=== PATIENT | female | born 1955 | race Caucasian/White ===

== ENCOUNTER 2017-09-24 09:34 | Emergency (ER) | payer MEDICARE, SELFPAY ==
[2017-09-24 09:36] VITALS: BP 169/80; PULSE 82; RESP 18; TEMP 36.6; O2SAT 97; BMI 39.0
--- NOTE | 2017-09-24 09:45 | ED.VISSUMM ---
- ER Visit Summary Date of Service: 09/24/17 Chief Complaint: Low blood sugar, neck pain History of Present Illness: The patient is a 62 F who states for the past couple of days her blood sugar has been running low. She states that she may have had an episode of low blood sugar and when she came to she checked her blood sugar and it was 42. She then had some neck pain after this. She thinks she might have fallen. She states that she sometimes has not been eating well over the past couple of days but takes the same dose of her insulin. She has no other complaints. She was able to drive herself here today. Physical Examination: Vital signs reviewed. HEENT exam unremarkable. Cervical spine is tender to palpation diffusely. Heart is regular rate and rhythm without murmurs. Lungs are clear to auscultation. Abdomen is soft and nontender. Extremities reveal no edema. Skin exam normal. Neurologic exam normal. Test Results: Laboratory studies normal except for glucose of 159. Cervical spine x-rays reveal no acute findings. Emergency Department Course and Treatment: Patient will be given Tylenol for her neck pain. This is likely muscular in nature. I do not suspect any intracranial injury as she has a normal neurologic exam. Her low blood sugars likely due to her taking her normal insulin dose and not eating. I explained her that she needs to take her insulin dose she needs to eat. Not hungry and is not going to be she needs to decrease her dose of insulin. She will discuss this with her primary care physician Treatment Plan: [] Disposition: Discharge Impression: Hypoglycemia, cervical strain This note was generated with [employer] dictation software. It may contain incorrect words, spelling, and punctuation that were not noted in review of the chart prior to signing ED Disposition - Plan for ED Patient: Chief Complaint: Hypoglycemia Referrals: Eugene Chapa Chi, MD [COURTESY STAFF PHYSICIAN] -
[2017-09-24 10:04] LABS: Absolute Lymphocyte Count 1.16 X10^3/ul (0.83-4.51); Absolute Neutrophil Count 2.3 X10^3/uL (2.0-7.7); Basophil# 0.03 X10^3/uL; Basophil% 0.8 % (0-1); Eosinophil# 0.08 X10^3/uL; Hematocrit 38.6 % (37-47); Hemoglobin 12.5 g/dl (12.0-15.0); Lymphocyte # 1.16 X10^3/ul (4.0); Mean Corp Hgb Conc 32.4 g/gl (32-36); Mean Corpuscular Hgb 29.2 pg (27.0-32.0); Mean Corpuscular Volume 90.2 fL (81-99); Mean Platelet Vol. 8.7 fl (6.2-12.0); Monocyte# 0.45 X10^3/uL; Monocyte% 11.3 % (0-10); Neutrophil # 2.28 X10^3/uL (2.7-7.7); Neutrophil % 56.9 % (47-70); POSITIVE COUNT NO; POSITIVE DIFFERENTIAL NO; POSITIVE MORPHOLOGY NO; Platelet Count 161 K/mm3 (150-450); RBC Distribution Width CV 12.9 % (11.6-14.6); RBC Distribution Width SD 42.4 fl (35.1-43.9); Red Blood Count 4.28 M/mm3 (4.2-5.4)
--- NOTE | 2017-09-24 10:05 | RAD_ITS ---
STUDY: X-RAY - CERVICAL SPINE REASON FOR EXAM: Female, 62 years old. Neck pain. TECHNIQUE: AP and lateral view(s) of the cervical spine were obtained. COMPARISON: None FINDINGS: Normal anterior atlantoaxial articulation. Normal odontoid process. Normal cervical lordosis. Mild degree of disc space narrowing with anterior spondylosis at the C6-C7 level. Normal visualized intervertebral neuroforamina. The soft tissue structures are unremarkable. RAD/Cerv Spine 2 or 3 Views IMPRESSION: Mild degree of disc space narrowing with anterior spondylosis at the C6-C7 level. Electronically Signed: Joey Coronado MD at 10:25 EST Tel [phone], Service support ,
[2017-09-24 10:16] LABS: Anion Gap 6 (5-15); BUN 12 mg/dL (7-18); BUN/Creat Ratio 12.4 RATIO (10-20); Calcium,Total 9.1 mg/dL (8.5-10.1); Chloride 103 mmol/L (98-107); Creatinine, Serum 0.97 mg/dL (0.55-1.02); EST Glomerular Filtration Rate 62 mL/min (>60); Est Glom Filt Rate - Afr Amer 75 mL/min (>60); Glucose 159 mg/dL (74-106); Potassium 4.3 mmol/L (3.5-5.1); Sodium Level 140 mmol/L (136-145)
--- NOTE | 2017-09-24 10:31 | ED.DEP ---
ED Disposition - Plan for ED Patient: Disposition: Home or Assisted Living Chief Complaint: Hypoglycemia Instructions: ED Diabetes Hypoglycemia Insulin React Referrals: Eugene Chapa Chi, MD [COURTESY STAFF PHYSICIAN] -
[2017-09-24 10:52] VITALS: PULSE 84; RESP 16; O2SAT 98
== END 2017-09-24 10:53 | disposition home or self-care (01) ==
PROVIDERS: Emergency Provider Emergency Medicine; Family Provider Internal Medicine; PCP Internal Medicine
DX: E11.649 Type 2 diabetes mellitus with hypoglycemia without coma (principal); S16.1XXA Strain of muscle, fascia and tendon at neck level, initial encounter; X58.XXXA Exposure to other specified factors, initial encounter; Y93.9 Activity, unspecified; Y92.9 Unspecified place or not applicable; I10 Essential (primary) hypertension; F32.9 Major depressive disorder, single episode, unspecified; Z86.39 Personal history of other endocrine, nutritional and metabolic disease; Z79.82 Long term (current) use of aspirin; Z79.4 Long term (current) use of insulin; Z79.899 Other long term (current) drug therapy
CPT/HCPCS: 72040; 80048; 85025; 99283

== ENCOUNTER 2017-11-19 18:47 | Emergency (ER) | payer MEDICARE, SELFPAY ==
[2017-11-19 18:47] VITALS: BP 166/76; PULSE 88; RESP 16; TEMP 36.4; O2SAT 99; BMI 38.2
--- NOTE | 2017-11-19 20:18 | RAD_ITS ---
STUDY: X-RAY - ABDOMEN/PELVIS REASON FOR EXAM: Female, 62 years old. constipation x 1 week TECHNIQUE: Single AP view of the abdomen / pelvis. COMPARISON: None. FINDINGS: There are multiple metallic clips in the right upper quadrant. This is consistent for a cholecystectomy. There is a moderate amount of colonic fecal material. There is no demonstrated free abdominal air. The visualized liver, spleen and kidneys are grossly normal in size and morphology. Normal soft tissue structures. There are diffuse degenerative changes of the visualized lumbar spine. RAD/Abdomen Single View (Portable) IMPRESSION: CONSTIPATION Electronically Signed: Ramesh Duarte MD at 20:31 EDT , Service support ,
--- NOTE | 2017-11-19 21:30 | ED.VISSUMM ---
- ER Visit Summary Date of Service: 11/19/17 Chief Complaint: Constipation History of Present Illness: The patient is a 62 F with constipation. No bowel movement for over a week. She is passing gas. She tried multiple medications at home with no relief. No history of bowel surgery or obstruction. No new medications. No vomiting. Physical Examination: Vital signs unremarkable. Afebrile. Abdomen soft and nontender. Rectal exam negative for stool or impaction. Test Results: KUB shows constipation. No obstruction. Emergency Department Course and Treatment: She treated with soapsuds enema and had good bowel movement. Will discharge. Use MiraLAX at home. Follow-up with primary care. Treatment Plan: As above Disposition: Discharged Impression:. Constipation This note was generated with [employer] dictation software. It may contain incorrect words, spelling, and punctuation that were not noted in review of the chart prior to signing ED Disposition - Plan for ED Patient: Chief Complaint: Constipation Referrals: Teresa Flores MD [Primary Care Provider] -
--- NOTE | 2017-11-19 21:31 | ED.DEP ---
ED Disposition - Plan for ED Patient: Chief Complaint: Constipation Instructions: ED Constipation Referrals: Teresa Flores MD [Primary Care Provider] -
[2017-11-19 21:54] VITALS: BP 136/70; PULSE 79; RESP 18; O2SAT 97
--- NOTE | 2017-11-19 21:55 | ED.RN ---
PT WITH SUCCESSFUL ENEMA RESULTS. PT GIVEN WRITTEN AND VERBAL DISCHARGE INSTRUCTIONS. PT VERBALIZES UNDERSTANDING. DENIES ANY FURTHER QUESTIONS. PT DRESSES SELF AND AMBULATES OUT OF DEPT WITHOUT ASSISTANCE.
== END 2017-11-19 21:57 | disposition home or self-care (01) ==
PROVIDERS: Emergency Provider Emergency Medicine; Family Provider Internal Medicine; PCP Internal Medicine
DX: K59.00 Constipation, unspecified (principal); E11.9 Type 2 diabetes mellitus without complications; I10 Essential (primary) hypertension; E03.9 Hypothyroidism, unspecified; Z79.82 Long term (current) use of aspirin; Z79.4 Long term (current) use of insulin; Z79.899 Other long term (current) drug therapy
CPT/HCPCS: 74018; 99284

== ENCOUNTER 2017-11-22 12:53 | Emergency (ER) | payer MEDICARE, SELFPAY ==
[2017-11-22 12:53] VITALS: BP 160/77; PULSE 104; RESP 17; TEMP 37.1; O2SAT 92; BMI 38.0
--- NOTE | 2017-11-22 13:13 | ED.DCSUM_ITS ---
- ER Visit Summary Date of Service: 11/22/17 Chief Complaint: Constipation History of Present Illness: The patient is a 62 F who presents with constipation. She has been constipated for over a week now. 4 days ago she was seen here and had a soapsuds enema which did help. She has not had a bowel movement since she was seen here. She tried prune juice, suppositories, MiraLAX and Dulcolax at home without any relief. She has a history of constipation in the past. She has diffuse pressure all over her abdomen. No nausea or vomiting noted. Physical Examination: Vital signs reviewed. HEENT exam unremarkable. Heart is regular rate and rhythm without murmurs. Lungs are clear to auscultation. Abdomen is soft with mild diffuse tenderness to palpation. Extremities reveal no edema. Skin exam normal. Neurologic exam normal. Test Results: None performed Emergency Department Course and Treatment: Patient was given fleets enema with minimal results. I feel she can be discharged home with mag citrate. We will give it to her here. She will go home with a prescription for GoLYTELY if this does not help. She will need to follow-up with her PCP. She was counseled on adding fiber to her diet to help her bowel movements Treatment Plan: [] Disposition: Discharge Impression constipation This note was generated with [employer] dictation software. It may contain incorrect words, spelling, and punctuation that were not noted in review of the chart prior to signing ED Disposition - Plan for ED Patient: Chief Complaint: Constipation Referrals: Teresa Flores MD [Primary Care Provider] -
[2017-11-22] MEDS: Fleet Enema 1 ML RECTAL (14:19)
--- NOTE | 2017-11-22 15:02 | ED.DEP ---
ED Disposition - Plan for ED Patient: Disposition: Home or Assisted Living Chief Complaint: Constipation Instructions: ED Constipation Prescriptions: Peg 3350/Na Sulf,Bicarb,Cl/KCl [Golytely Solution] 4,000 ml PO UD #1 soln.recon Referrals: Teresa Flores MD [Primary Care Provider] -
[2017-11-22] MEDS: Magnesium Citrate 300 ML PO (15:26)
[2017-11-22 15:29] VITALS: BP 124/58; PULSE 83; RESP 16; O2SAT 95
== END 2017-11-22 15:30 | disposition home or self-care (01) ==
PROVIDERS: Emergency Provider Emergency Medicine; Family Provider Internal Medicine; PCP Internal Medicine
DX: K59.00 Constipation, unspecified (principal); E11.9 Type 2 diabetes mellitus without complications; I10 Essential (primary) hypertension; E03.9 Hypothyroidism, unspecified; Z79.82 Long term (current) use of aspirin; Z79.4 Long term (current) use of insulin; Z79.899 Other long term (current) drug therapy
CPT/HCPCS: 99283

== ENCOUNTER 2018-05-09 12:01 | Observation (INO) | payer MEDICARE, SELFPAY ==
[2018-05-09] VITALS (8 sets, daily range): BP systolic 152–169; BP diastolic 70–84; PULSE 72–99; RESP 14–17; TEMP 36.7–37.2; O2SAT 94–98; BMI 40.2; BMI 38.6; BMI 38.7
--- NOTE | 2018-05-09 12:20 | RAD_ITS ---
STUDY: X-RAY CHEST REASON FOR EXAM: Female, 62 years old. Mid chest pain. TECHNIQUE: Single AP portable view of the chest. COMPARISON: Comparison is made with prior study dated March 19, 2014. FINDINGS: EKG electrodes are seen. The lungs are clear and expanded. There is no demonstrated pleural abnormality. Normal size heart. Normal mediastinum and garry. Normal visualized pulmonary arteries. Normal visualized aortic arch and descending thoracic aorta. There are diffuse degenerative changes of the visualized thoracic spine. Normal visualized ribs, clavicles, and shoulders. There is no demonstrated abnormality of the visualized soft tissue structures of the upper abdomen. RAD/Chest 1 View (Portable) IMPRESSION: Normal x-ray examination of the chest. Electronically Signed: Joey Coronado MD at 12:39 EDT Tel [phone], Service support ,
--- NOTE | 2018-05-09 12:21 | EKG12_ITS ---
Test Reason : CP Blood Pressure : / mmHG Vent. Rate : 089 BPM Atrial Rate : 089 BPM P-R Int : 130 ms QRS Dur : 088 ms QT Int : 368 ms P-R-T Axes : 040 034 039 degrees QTc Int : 447 ms Normal sinus rhythm Normal ECG Confirmed by SULEIMAN WORKMAN, SINAN ([id number]), society editor MART VALDIVIA ([id number]) on 05/13/2018 2:40:25 PM Referred By: SAROJ Confirmed By:SINAN BEARDEN MD
--- NOTE | 2018-05-09 12:23 | ED.DCSUM_ITS ---
- ER Visit Summary Date of Service: 05/09/18 Chief Complaint: Chest pain History of Present Illness: The patient is a 62 F male history of prior TIA, hypertension, high cholesterol and insulin-dependent diabetes. Reportedly no prior history of cardiac disease. No prior heart catheter stents. No history o f DVT or PE. No recent travel, surgery or mobilization. No leg pain or swelling. No hemoptysis. Patient states for the last 2 days starting yesterday she had intermittent chest pain. Associated mild nausea. Worse with exertion. Better with rest. Currently symptom-free. States when she walks it gets worse and resolves when she rests. Physical Examination: Older female no acute distress. Vital signs are stable and afebrile. Pulse ox 90% on room air no signs of hypoxia. HEENT exam unremarkable. Neck nontender no lymphadenopathy. Lungs clear to auscultation bilaterally. Heart regular rhythm no murmur. Chest wall nontender. Abdomen soft nontender. Moving all 4 extremities. Calves nontender, no edema no cords. Neurologically awake and alert no focal motor deficits. Test Results: CBC normal. Hemoglobin 12. Electrolytes unremarkable. Creatinine 1.2. Bonifacio elevated 270. Anion gap 9. Troponin normal. EKG sinus rhythm rate 89 with chest x-ray no acute process read both by myself and radiologist. Emergency Department Course and Treatment: Patient undergoing a cardiac workup. Given her age, risk factors and exertional chest pain she will need to be admitted for further evaluation. Treatment Plan: Repeat exam patient is doing well at 1352. She is symptom-free. I spoke to the hospitalist and she will be admitted. Disposition: Admission Impression: Acute chest pain of uncertain etiology History of hypertension, high cholesterol and insulin-dependent diabetes This note was generated with [employer] dictation software. It may contain incorrect words, spelling, and punctuation that were not noted in review of the chart prior to signing ED Disposition - Plan for ED Patient: Chief Complaint: Chest Pain Referrals: Teresa Flores MD [Primary Care Provider] -
[2018-05-09] MEDS: Aspirin 81 MG TAB.CHEW 324 MG PO (12:27)
[2018-05-09 12:29] LABS: Absolute Lymphocyte Count 1.01 X10^3/ul (0.83-4.51); Absolute Neutrophil Count 3.5 X10^3/uL (2.0-7.7); Basophil# 0.02 X10^3/uL; Basophil% 0.4 % (0-1); Eosinophil# 0.07 X10^3/uL; Eosinophils% 1.4 % (0-5); Hematocrit 39.3 % (37-47); Hemoglobin 12.9 g/dl (12.0-15.0); Lymphocyte # 1.01 X10^3/ul (4.0); Lymphocyte % 20.7 % (19-41); Mean Corp Hgb Conc 32.8 g/gl (32-36); Mean Corpuscular Hgb 28.9 pg (27.0-32.0); Mean Corpuscular Volume 88.1 fL (81-99); Mean Platelet Vol. 9.1 fl (6.2-12.0); Monocyte% 6.1 % (0-10); Neutrophil # 3.48 X10^3/uL (2.7-7.7); Neutrophil % 71.2 % (47-70); POSITIVE COUNT NO; POSITIVE DIFFERENTIAL NO; POSITIVE MORPHOLOGY NO; Platelet Count 174 K/mm3 (150-450); RBC Distribution Width CV 12.6 % (11.6-14.6); RBC Distribution Width SD 40.8 fl (35.1-43.9); Red Blood Count 4.46 M/mm3 (4.2-5.4); White Blood Count 4.9 K/mm3 (4.4-11.0)
[2018-05-09 12:52] LABS: Anion Gap 9 (5-15); BUN 19 mg/dL (7-18); Calcium,Total 8.9 mg/dL (8.5-10.1); Chloride 102 mmol/L (98-107); Creatinine, Serum 1.27 mg/dL (0.55-1.02); EST Glomerular Filtration Rate 46 mL/min (>60); Est Glom Filt Rate - Afr Amer 55 mL/min (>60); Estimated Creatinine Clearance 33.84 ml/min; Glucose 270 mg/dL (74-106); Potassium 4.1 mmol/L (3.5-5.1); Sodium Level 140 mmol/L (136-145)
--- NOTE | 2018-05-09 14:21 | PCM.HP.STD ---
Problem List (1) Chest pain Status: Acute History of Present Illness Date of Admission: 05/09/18 Chief Complaint: chest pain The patient is a 62 year old F with past medical history of hypertension, hyperlipidemia and diabetes mellitus. She was admitted by the ED on 05/09/2018 with complaint of chest pain of one days duration. Chest pain started yesterday afternoon and was sharp, retrosternal, rated 9 out of 10, with no aggravating or relieving factors. She complained of associated diaphoresis but denied any lightheadedness, dizziness, shortness of breath or palpitations. She also complained of abdominal pain which that was she thought was due to her constipation. She never had such chest pain in the past. The only recent long distance travel she can remember is going to visit her children and grandchildren in [place] in March. She is never had any DVT or PE before and denies any lower extremity swelling. She also denies any weight loss. In the ED, vitals were significant for temperature of 98 Fahrenheit, blood pressure of 155/78, pulse rate of 18 respiratory rate of 14. BMP was significant for creatinine of 1.27, with baseline being around 1 initial troponin was negative. CBC was unremarkable. CXR showed no acute cardiopulmonary process. She has been admitted to be managed for chest pain to rule out ACS. [] Past Medical History Past Medical History (Chronic Problems): Chronic Problems Obesity (BMI 30-39.9) (Chronic) Hypertension (Chronic) Hypothyroidism (Chronic) Hyperlipidemia (Chronic) Anxiety (Chronic) Allergies No Known Allergies Allergy (Verified 11/22/17 12:57) Home Medications: Ambulatory Orders Medication Instructions Recorded Aspirin [Ecotrin] 81 mg PO DAILY 08/20/13 Lisinopril [Zestril] 10 mg PO DAILY 08/20/13 Trazodone HCl [Oleptro ER] 150 mg PO QHS 08/20/13 Cyclobenzaprine [Flexeril] 10 mg PO QHS PRN 09/24/17 Duloxetine Hcl [Cymbalta] 30 mg PO BID 09/24/17 Meloxicam [Mobic] 15 mg PO DAILY 09/24/17 Pravastatin [Pravachol] 40 mg PO QHS 09/24/17 Insulin Aspart [Novolog Flexpen 15 units SC TIDCM 05/09/18 ([facility])] Insulin Degludec [Tresiba 50 units SQ QHS 05/09/18 Flextouch U-200] Levothyroxine [Synthroid] 100 mcg PO DAILY 05/09/18 Surgical History: - - Cataracts, Cholecystectomy. Psychiatric History: Anxiety, Depression [employer] History: No pertinent [employer] history Lives: Alone Smoking Status: Never smoker Alcohol: None Drugs: None - *Family History Maternal History Items: Cancer, Diabetes, Heart Disease, Hypertension Paternal History Items: Cancer, Diabetes, Heart Disease, Hypertension Review of Systems Constitutional: Denies: Chills, Fever, Malaise, Weakness, Weight Change HEENT: Denies: Head Aches, Sinus Congestion, Sinus Drainage Cardiovascular: Reports: Chest Pain. Denies: Chest Pressure, Chest Tightness, Edema, Heaviness, Light Headedness, Orthopnea, Palpitations, Paroxysmal Noc. Dyspnea, Syncope Respiratory: Denies: Cough, Pleuritic Pain, Shortness of Breath, Shortness of breath at rest, Shortness of breath upon exertion, Sputum production, Wheezing Gastrointestinal: Reports: Abdominal Pain, Constipation. Denies: Diarrhea, Dyspepsia, Nausea, Vomiting Genitourinary: Denies: Dysuria Musculoskeletal: Denies: Joint Pain, Joint Tenderness Skin: Denies: Rash, Wounds Neurological: Denies: Numbness, Tingling, Focal weakness Psychiatric: Denies: Anxiety, Depression, Homicidal Ideations, Suicidal Ideations Hematologic/ Lymphatic: Denies: Easy Bruising, Easy Bleeding VTE Information - Inpt Only VTE Present on Admission: No VTE Pharm Prophylaxis ordered?: Yes Patient Problems: Active and Suspected Problems Chest pain (Acute) - Physical Exam General: Alert, Oriented x3, Cooperative, No apparent distress HEENT: Atraumatic, PERRLA, EOMI, Normocephalic Oral: Moist Mucosa Neck: Supple, No JVD, Negative Carotid Bruits Lungs: Clear to auscultation, Normal air movement, No rhonchi, No wheeze, No rales Cardiovascular: Regular rate, Regular Rhythm, Normal S1, Normal S2, No murmurs Abdomen: Bowel Sounds Present, Soft, Non Tender, Non-Distended, No Hepato-splenomegaly Extremities: No clubbing, No cyanosis, No edema, Capillary Refill Less than 3 Seconds Skin: No rashes, No breakdown Musculoskeletal: No Tenderness to Palpation of Joints or Extremities Lymphatic: No Cervical, Supraclavicular, or Inguinal Adenopathy Neurological: Cranial nerves II-XII grossly intact, Neuro grossly intact, Motor Exam 5/5 strength throughout Psych/Mental Status: Normal Affect, Appropriate, Alert and oriented to time, place, person, mood and affect Vital Signs Temp Pulse Resp BP Pulse Ox 98.0 F 80 14 155/78 H 97 05/09/18 12:05 05/09/18 14:09 05/09/18 14:09 05/09/18 14:09 05/09/18 14:09 Oxygen Delivery Method Room Air Weight: 206 lb 2.115 oz Body Mass Index (BMI) 40.2 Finger Stick Blood Glucose 322 Laboratory Tests Past 24 Hrs 05/09/18 05/09/18 12:16 12:16 WBC 4.9 RBC 4.46 Hgb 12.9 Hct 39.3 MCV 88.1 MCH 28.9 MCHC 32.8 RDW 12.6 RDW Differential 40.8 Plt Count 174 MPV 9.1 Immature Gran % (Auto) 0.200 Neut % (Auto) 71.2 H Lymph % (Auto) 20.7 Amador % (Auto) 6.1 Eos % (Auto) 1.4 Baso % (Auto) 0.4 Absolute Neuts (auto) 3.5 Absolute Lymphs (auto) 1.01 Total Counted Not Reportable Sodium 140 Potassium 4.1 Chloride 102 Carbon Dioxide 29.0 Anion Gap 9 BUN 19 H Creatinine 1.27 H Estim Creat Clear Calc 33.84 Est GFR (MDRD) Af Amer 55 L Est GFR (MDRD) Non-Af 46 L BUN/Creatinine Ratio 15.0 Glucose 270 H Calcium 8.9 Troponin I < 0.015 Diagnostic Data Chest X-Ray 05/09/18 12:20 IMPRESSION: Normal x-ray examination of the chest. Electronically Signed: Joey Coronado MD at 12:39 EDT Tel [phone], Service support , Assessment/Plan All Active Problems Chest pain (Acute) 62-year-old female presenting with a 1 day history of chest pain 1. Atypical chest pain, to rule out ACS chest pain had resolved at time of review; was retrosternal, sharp, nonradiating. Initial troponin was negative and EKG showed normal sinus rhythm no acute ST changes. Chest x-ray was also negative. Admit to PCU with telemetry Cycle troponins. Stress echocardiogram tomorrow. 2. DAFNE Cr is 1.27; baseline ~ 1 will hydrate and monitor 3. Diabetes mellitus will check A1C on lantus 50IU qhs and humalog 15IU TIDWM; accuchecks ACHS ISS 3. Hypertension: on lisinopril 10mg daily. 4. Hypothyroidism: on synthroid 100mcg daily 5. Hyperlipidemia: on pravastatin 40mg qhs DVT prophylaxis: heparin Code status: Full code patient counselled about different types of code status; differences between DNRCC, DNRCCA and full code. Patient elects to be full code. Code Visit OBSV E&M: 24769 Initial observation care L3 Procedures: 01472 Advncd Care Plan 30 Min
--- NOTE | 2018-05-09 14:24 | EKG12_ITS ---
Test Reason : Blood Pressure : / mmHG Vent. Rate : 075 BPM Atrial Rate : 075 BPM P-R Int : 160 ms QRS Dur : 086 ms QT Int : 420 ms P-R-T Axes : 051 045 053 degrees QTc Int : 469 ms Normal sinus rhythm Nonspecific T wave abnormality Prolonged QT Abnormal ECG Confirmed by Emilie Nuñez ([id number]), writer editor MART VALDIVIA ([id number]) on 05/13/2018 3:30:39 PM Referred By: Confirmed By:Emilie Nuñez
--- NOTE | 2018-05-09 14:30 | HP.PCM_ITS ---
Problem List (1) Chest pain Status: Acute History of Present Illness Date of Admission: 05/09/18 Chief Complaint: chest pain The patient is a 62 year old F with past medical history of hypertension, hyperlipidemia and diabetes mellitus. She was admitted by the ED on 05/09/2018 with complaint of chest pain of one days duration. Chest pain started yesterday afternoon and was sharp, retrosternal, rated 9 out of 10, with no aggravating or relieving factors. She complained of associated diaphoresis but denied any lightheadedness, dizziness, shortness of breath or palpitations. She also complained of abdominal pain which that was she thought was due to her constipation. She never had such chest pain in the past. The only recent long distance travel she can remember is going to visit her children and grandchildren in [place] in March. She is never had any DVT or PE before and denies any lower extremity swelling. She also denies any weight loss. In the ED, vitals were significant for temperature of 98 Fahrenheit, blood pressure of 155/78, pulse rate of 18 respiratory rate of 14. BMP was significant for creatinine of 1.27, with baseline being around 1 initial troponin was negative. CBC was unremarkable. CXR showed no acute cardiopulmonary process. She has been admitted to be managed for chest pain to rule out ACS. [] Past Medical History Past Medical History (Chronic Problems): Chronic Problems Obesity (BMI 30-39.9) (Chronic) Hypertension (Chronic) Hypothyroidism (Chronic) Hyperlipidemia (Chronic) Anxiety (Chronic) Allergies No Known Allergies Allergy (Verified 11/22/17 12:57) Home Medications: Ambulatory Orders Medication Instructions Recorded Aspirin [Ecotrin] 81 mg PO DAILY 08/20/13 Lisinopril [Zestril] 10 mg PO DAILY 08/20/13 Trazodone HCl [Oleptro ER] 150 mg PO QHS 08/20/13 Cyclobenzaprine [Flexeril] 10 mg PO QHS PRN 09/24/17 Duloxetine Hcl [Cymbalta] 30 mg PO BID 09/24/17 Meloxicam [Mobic] 15 mg PO DAILY 09/24/17 Pravastatin [Pravachol] 40 mg PO QHS 09/24/17 Insulin Aspart [Novolog Flexpen 15 units SC TIDCM 05/09/18 ([facility])] Insulin Degludec [Tresiba 50 units SQ QHS 05/09/18 Flextouch U-200] Levothyroxine [Synthroid] 100 mcg PO DAILY 05/09/18 Surgical History: - - Cataracts, Cholecystectomy. 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 Denies: Chest Pressure, Chest Tightness, Edema, Heaviness, Light Headedness, Orthopnea, Palpitations, Paroxysmal Noc. Dyspnea, Syncope Respiratory: Denies: Cough, Pleuritic Pain, Shortness of Breath, Shortness of breath at rest, Shortness of breath upon exertion, Sputum production, Wheezing Gastrointestinal: Reports: Abdominal Pain, Constipation. Denies: Diarrhea, D yspepsia, Nausea, Vomiting Genitourinary: Denies: Dysuria Musculoskeletal: Denies: Joint Pain, Joint Tenderness Skin: Denies: Rash, Wounds Neurological: Denies: Numbness, Tingling, Focal weakness Psychiatric: Denies: Anxiety, Depression, Homicidal Ideations, Suicidal Ideatio ns Hematologic/ Lymphatic: Denies: Easy Bruising, Easy Bleeding VTE Information - Inpt Only VTE Present on Admission: No VTE Pharm Prophylaxis ordered?: Yes Patient Problems: Active and Suspected Problems Chest pain (Acute) - Physical Exam General: Alert, Oriented x3, Cooperative, No apparent distress HEENT: Atraumatic, PERRLA, EOMI, Normocephalic Oral: Moist Mucosa Neck: Supple, No JVD, Negative Carotid Bruits Lungs: Clear to auscultation, Normal air movement, No rhonchi, No wheeze, No rales Cardiovascular: Regular rate, Regular Rhythm, Normal S1, Normal S2, No murmurs Abdomen: Bowel Sounds Present, Soft, Non Tender, Non-Distended, No Hepato- splenomegaly Extremities: No clubbing, No cyanosis, No edema, Capillary Refill Less than 3 Seconds Skin: No rashes, No breakdown Musculoskeletal: No Tenderness to Palpation of Joints or Extremities Lymphatic: No Cervical, Supraclavicular, or Inguinal Adenopathy Neurological: Cranial nerves II-XII grossly intact, Neuro grossly intact, Motor Exam 5/5 strength throughout Psych/Mental Status: Normal Affect, Appropriate, Alert and oriented to time, place, person, mood and affect Vital Signs Temp Pulse Resp BP Pulse Ox 98.0 F 80 14 155/78 H 97 05/09/18 12:05 05/09/18 14:09 05/09/18 14:09 05/09/18 14:09 05/09/18 14:09 Oxygen Delivery Method Room Air Weight: 206 lb 2.115 oz Body Mass Index (BMI) 40.2 Finger Stick Blood Glucose 322 Laboratory Tests Past 24 Hrs 05/09/18 05/09/18 12:16 12:16 WBC 4.9 RBC 4.46 Hgb 12.9 Hct 39.3 MCV 88.1 MCH 28.9 MCHC 32.8 RDW 12.6 RDW Differential 40.8 Plt Count 174 MPV 9.1 Immature Gran % (Auto) 0.200 Neut % (Auto) 71.2 H Lymph % (Auto) 20.7 Mcpherson % (Auto) 6.1 Eos % (Auto) 1.4 Baso % (Auto) 0.4 Absolute Neuts (auto) 3.5 Absolute Lymphs (auto) 1.01 Total Counted Not Reportable Sodium 140 Potassium 4.1 Chloride 102 Carbon Dioxide 29.0 Anion Gap 9 BUN 19 H Creatinine 1.27 H Estim Creat Clear Calc 33.84 Est GFR (MDRD) Af Amer 55 L Est GFR (MDRD) Non-Af 46 L BUN/Creatinine Ratio 15.0 Glucose 270 H Calcium 8.9 Troponin I < 0.015 Diagnostic Data Chest X-Ray 05/09/18 12:20 IMPRESSION: Normal x-ray examination of the chest. Electronically Signed: Joey Coronado MD at 12:39 EDT Tel [phone], Service support , Assessment/Plan All Active Problems Chest pain (Acute) 62-year-old female presenting with a 1 day history of chest pain 1. Atypical chest pain, to rule out ACS * chest pain had resolved at time of review; was retrosternal, sharp, nonradiating. * Initial troponin was negative and EKG showed normal sinus rhythm no acute ST changes. Chest x-ray was also negative. * Admit to PCU with telemetry * Cycle troponins. * Stress echocardiogram tomorrow. * 2. DAFNE * Cr is 1.27; baseline ~ 1 * will hydrate and monitor * 3. Diabetes mellitus * will check A1C * on lantus 50IU qhs and humalog 15IU TIDWM; * accuchecks ACHS * ISS * 3. Hypertension: on lisinopril 10mg daily. 4. Hypothyroidism: on synthroid 100mcg daily 5. Hyperlipidemia: on pravastatin 40mg qhs DVT prophylaxis: heparin Code status: Full code * patient counselled about different types of code status; differences between DNRCC, DNRCCA and full code. Patient elects to be full code. Code Visit OBSV E&M: 40439 Initial observation care L3 Procedures: 68023 Advncd Care Plan 30 Min
[2018-05-09] MEDS: 0.9% Normal Saline 1,000 ML 100 ML IV (15:13)
[2018-05-09 16:01] LABS: Bedside Glucose 227 mg/dL (70-110)
--- NOTE | 2018-05-09 16:37 | CHAPLAIN ---
Type of Pastoral Visit _x__ Initial Visit ___ Follow-up Visit ___ On-call Visit ___ General Patient Visit ___ Spiritual Assessment ___ Family Conference ___ Bereavement ___ Rapid Response ___ Code Blue ___ Other (describe below) Pastoral Care Referral From _x__ Patient ___ Family ___ Nurse ___ Physician ___ Rotary Kiln Operator ___ Drug Enforcement Agent ___ Other (describe below) Sacrament/Intervention _x__ Active listening ___ Anointing ___ Holiness ___ Bereavement ___ Communion _x__ Adela exploration ___ _x__ Life review _x__ Prayer ___ Reconciliation ___ Sacrament of Sick _x__ Supportive presence ___ Wedding ___ Other (describe below) Pastoral Comments patient will be undergoing more tests; pt discloses that she has been 8 years ago, made major move to [place], and has family drama in her life; these circumstances were more pressing on her than the concern for her health at this time; pt does not have a bahai connection now but was active where she lived previously; pt would like to find a bahai home in this area; pt acknowledges need for spiritual support; pt welcomes prayer
[2018-05-09] MEDS: Insulin Lispro 100 UNIT/ML INSULN.PEN 15 UNIT SC (18:38)
--- NOTE | 2018-05-09 18:49 | NURSING ---
medication administration and pt care completed by laura womack reviewed under supervision of this RN
--- NOTE | 2018-05-09 19:11 | EKG12_ITS ---
Test Reason : Blood Pressure : / mmHG Vent. Rate : 069 BPM Atrial Rate : 069 BPM P-R Int : 154 ms QRS Dur : 088 ms QT Int : 396 ms P-R-T Axes : 045 037 034 degrees QTc Int : 424 ms Normal sinus rhythm Normal ECG Confirmed by Emilie Nuñez ([id number]), editor in chief newspaper [employer] ([id number]) on 05/13/2018 3:32:20 PM Referred By: Confirmed By:Emilie Nuñez
[2018-05-09] MEDS: Morphine 2 MG/ML Syringe IV (21:40)
[2018-05-09] MEDS: 0.9% NaCl Peripheral Flush Adult/Peds IV (21:44)
[2018-05-09] MEDS: DULoxetine Hcl 30 MG Capsule PO (21:45)
[2018-05-09] MEDS: Pravastatin 40 MG Tablet PO (21:45)
[2018-05-09] MEDS: traZODone 50 MG Tablet 150 MG PO (21:48)
[2018-05-10 00:06] LABS: Bedside Glucose 55 mg/dL (70-110)
[2018-05-10 00:11] LABS: Bedside Glucose 87 mg/dL (70-110)
[2018-05-10 01:17] VITALS: BP 115/56; PULSE 70; RESP 16; TEMP 36.6; O2SAT 93
[2018-05-10 03:02] VITALS: PULSE 74
[2018-05-10 05:29] LABS: Absolute Lymphocyte Count 1.58 X10^3/ul (0.83-4.51); Absolute Neutrophil Count 2.2 X10^3/uL (2.0-7.7); Basophil# 0.03 X10^3/uL; Basophil% 0.7 % (0-1); Eosinophil# 0.13 X10^3/uL; Hematocrit 34.9 % (37-47); Hemoglobin 11.9 g/dl (12.0-15.0); Lymphocyte # 1.58 X10^3/ul (4.0); Lymphocyte % 36.8 % (19-41); Mean Corp Hgb Conc 34.1 g/gl (32-36); Mean Corpuscular Volume 87.9 fL (81-99); Monocyte# 0.33 X10^3/uL; Monocyte% 7.7 % (0-10); Neutrophil # 2.22 X10^3/uL (2.7-7.7); Neutrophil % 51.8 % (47-70); Platelet Count 170 K/mm3 (150-450); RBC Distribution Width CV 12.6 % (11.6-14.6); RBC Distribution Width SD 40.6 fl (35.1-43.9); Red Blood Count 3.97 M/mm3 (4.2-5.4); White Blood Count 4.3 K/mm3 (4.4-11.0)
[2018-05-10 05:30] LABS: POSITIVE COUNT NO; POSITIVE DIFFERENTIAL NO; POSITIVE MORPHOLOGY NO
[2018-05-10 05:49] LABS: Prothrombin Time (Protime)PT. 13.2 SECONDS (11.7-14.9)
[2018-05-10 05:50] LABS: Partial Thromboplast Time 29.5 Seconds (24.1-36.2)
[2018-05-10 05:53] LABS: Anion Gap 8 (5-15); BUN 16 mg/dL (7-18); BUN/Creat Ratio 18.4 RATIO (10-20); Calcium,Total 8.4 mg/dL (8.5-10.1); Chloride 108 mmol/L (98-107); Creatinine, Serum 0.87 mg/dL (0.55-1.02); EST Glomerular Filtration Rate 70 mL/min (>60); Est Glom Filt Rate - Afr Amer 85 mL/min (>60); Estimated Creatinine Clearance 49.39 ml/min; Glucose 195 mg/dL (74-106); Potassium 4.2 mmol/L (3.5-5.1); Sodium Level 143 mmol/L (136-145)
--- NOTE | 2018-05-10 05:55 | EKG12_ITS ---
Test Reason : ADMISSION EKG Blood Pressure : / mmHG Vent. Rate : 080 BPM Atrial Rate : 080 BPM P-R Int : 150 ms QRS Dur : 084 ms QT Int : 398 ms P-R-T Axes : 040 043 034 degrees QTc Int : 459 ms Normal sinus rhythm Normal ECG Confirmed by Emilie Nuñez ([id number]), technical writer and editor [employer] ([id number]) on 05/13/2018 3:32:33 PM Referred By: ESTELLA Confirmed By:Emilie Nuñez
[2018-05-10 06:07] VITALS: BP 155/67; PULSE 71; RESP 16; TEMP 36.7; O2SAT 94
[2018-05-10] MEDS: Lisinopril 10 MG Tablet PO (06:10)
[2018-05-10] MEDS: Aspirin E.C. 81 MG Tablet PO (06:11)
[2018-05-10] MEDS: Levothyroxine 100 MCG Tablet PO (06:11)
[2018-05-10 06:20] LABS: Bedside Glucose 190 mg/dL (70-110)
[2018-05-10 06:54] VITALS: PULSE 75
--- NOTE | 2018-05-10 08:00 | STEWCON_ITS ---
Reason For Study: CHEST PAIN Stress Results Protocol: Robbie Protocol Maximum Predicted HR: 160 bpm Target HR: 136 bpm% Max imum Predicted HR: 89 % DurationHeart Rate Stage (mm:ss) (bpm) BPCom ment BASELINE 70 142/78 2CC DEFINITY STAGE 1 3:00 12 6 180/70 STAGE 2 3:00 14 2 / 2CC DEFINITY RECOVERY 97 160/72 1CC DEFINITY Stress Duration: 6:00 mm:ss Maximum Stress HR: 142 bpmM ETS: 7 Baseline Echocardiogram Findings Stress Echo Wall motion Data Resting WMIntermediate WMStress WM Resting Wall Motion Wall Motion Stress All segments Normal. All segments Normal. Ejection Fraction 65 %. Ejection Fraction 75 %. Stress Results Heart rate response: appropriate Blood pressure response: resting hypertension - appropriate response Arrhythmias: none Functional capacity: average Stopped secondary to: dyspnea. EKG Data Baseline ECG: NSR. Exercise ECG: no obvious ECG changes. Symptoms with Stress No c/o chest discomfort during exercise / recovery. Interpretation Summary Negative (adequate) Stress Echocardiogram Ordering Physician: Saundra Castillo Performed By: Ritchie Wilson RCS
[2018-05-10 09:21] LABS: Bedside Glucose 181 mg/dL (70-110)
[2018-05-10] MEDS: Insulin Lispro 100 UNIT/ML INSULN.PEN 15 UNIT SC (09:23)
[2018-05-10] MEDS: Insulin Lispro 100 UNIT/ML INSULN.PEN SQ (09:23)
[2018-05-10] MEDS: Meloxicam 15 MG Tablet PO (09:24)
[2018-05-10] MEDS: DULoxetine Hcl 30 MG Capsule PO (09:24)
[2018-05-10 11:15] VITALS: PULSE 97
--- NOTE | 2018-05-10 11:41 | DCINST_ITS ---
- Discharge Diagnoses Current Active Problems: Current Active and Chronic Problems Chest pain (Acute) You will use the following diet at home:: Calorie/Carbohydrate Controlled (specify 1200, 1400, etc) Discharge Activity: Return to Normal Activity Call your doctor if you observe: Shortness of breath, Dizziness, Swelling in the ankles, Chest pain Allergies/Adverse Reactions: Allergies No Known Allergies Allergy (Verified 11/22/17 12:57) Medications to take at Discharge Aspirin [Ecotrin] 81 mg PO DAILY 08/20/13 Lisinopril [Zestril] 10 mg PO DAILY 08/20/13 Trazodone HCl [Oleptro ER] 150 mg PO QHS 08/20/13 Cyclobenzaprine [Flexeril] 10 mg PO QHS PRN 09/24/17 Duloxetine Hcl [Cymbalta] 30 mg PO BID 09/24/17 Meloxicam [Mobic] 15 mg PO DAILY 09/24/17 Pravastatin [Pravachol] 40 mg PO QHS 09/24/17 Insulin Aspart [Novolog Flexpen] 15 units SC TIDCM 05/09/18 Insulin Degludec [Tresiba Flextouch U-200] 50 units SQ QHS 05/09/18 Levothyroxine [Synthroid] 100 mcg PO DAILY 05/09/18 Primary Care Physician: Teresa Flores MD [Primary Care Provider] - Please follow up with your Primary Care Physician in: 1 Week Test Results: Test results from this visit will be discussed in further detail at your follow- up appointment, if applicable. Proposed Discharge Date: 05/10/18
--- NOTE | 2018-05-10 12:03 | PCM.DC.SUM ---
<Chasidy Borjas - Last Filed: 05/10/18 12:07> Discharge Date and Diagnosis - Problem List Patient Problems: Active and Suspected Problems Chest pain (Acute) Date of Admission: 05/09/18 Date of Discharge: 05/10/18 - Primary Discharge Diagnosis Active and Suspected Problems 1. Musculoskeletal chest pain - Secondary Discharge Diagnosis Chronic Problems Obesity (BMI 30-39.9) (Chronic) Hypertension (Chronic) Hypothyroidism (Chronic) Hyperlipidemia (Chronic) Anxiety (Chronic) Hospital Course and Treatment Imaging Results: Diagnostic Data Chest X-Ray 05/09/18 12:20 IMPRESSION: Normal x-ray examination of the chest. Electronically Signed: Joey Coronado MD at 12:39 EDT Tel [phone], Service support , Operations: None Procedures: - - Stress echo Summary of Care Provided: The patient is a 62 year old F admitted 05/09/2018 due to chest pain. She has a past medical history of hypertension, hyperlipidemia, type 2 diabetes mellitus, anxiety/depression, obesity. Troponin negative. Patient underwent stress echo which was normal. Ejection fraction 65%. No chest pain during exertion. Patient denies further chest pain during admission. ACS ruled out. Other chronic medical conditions as noted above are stable at this time. Patient stable for discharge home with follow-up with primary care physician in 1 week. General: Alert, Oriented x3, Cooperative, No apparent distress HEENT: Atraumatic, PERRLA, EOMI, Normocephalic Oral: Moist Mucosa Neck: Supple, No JVD, Negative Carotid Bruits Lungs: Clear to auscultation, Normal air movement Cardiovascular: Regular rate, Regular Rhythm, Normal S1, Normal S2, No murmurs Abdomen: Bowel Sounds Present, Soft, Non Tender, Non-Distended Extremities: No clubbing, No cyanosis, No edema, Capillary Refill Less than 3 Seconds Skin: No rashes, No breakdown Musculoskeletal: No Tenderness to Palpation of Joints or Extremities Lymphatic: No Cervical, Supraclavicular, or Inguinal Adenopathy Neurological: Cranial nerves II-XII grossly intact, Neuro grossly intact Psych/Mental Status: Normal Affect, Appropriate Patient seen exam prior to discharge. Physical assessment as noted above. Patient is stable for discharge home with follow-up with primary care physician in 1 week. This patient was seen by CARITO Palmer under the supervision of Dr. Miller. Discharge Diet: 1800 Calorie Control Diet, Carb Control Diet Discharge Activity: Return to Normal Activity Call your doctor if you observe: Shortness of breath, Dizziness, Swelling in the ankles, Chest pain Home Medications: Medications to take at Discharge Aspirin [Ecotrin] 81 mg PO DAILY 08/20/13 Lisinopril [Zestril] 10 mg PO DAILY 08/20/13 Trazodone HCl [Oleptro ER] 150 mg PO QHS 08/20/13 Cyclobenzaprine [Flexeril] 10 mg PO QHS PRN 09/24/17 Duloxetine Hcl [Cymbalta] 30 mg PO BID 09/24/17 Meloxicam [Mobic] 15 mg PO DAILY 09/24/17 Pravastatin [Pravachol] 40 mg PO QHS 09/24/17 Insulin Aspart [Novolog Flexpen] 15 units SC TIDCM 05/09/18 Insulin Degludec [Tresiba Flextouch U-200] 50 units SQ QHS 05/09/18 Levothyroxine [Synthroid] 100 mcg PO DAILY 05/09/18 Primary Care Physician: Teresa Flores MD [Primary Care Provider] - Please follow up with your Primary Care Physician in: 1 Week Disposition: Home Minutes spent on discharge:: 35 Patient Condition:: Stable Medical Necessity - Tobacco Use Smoking Status: Never smoker Meaningful Use Info Meaningful Use Diagnoses (Choose all that apply): None applicable <Flash Miller - Last Filed: 05/10/18 13:08> Discharge Date and Diagnosis - Primary Discharge Diagnosis Active and Suspected Problems Chest pain (Acute) - Secondary Discharge Diagnosis Chronic Problems Obesity (BMI 30-39.9) (Chronic) Hypertension (Chronic) Hypothyroidism (Chronic) Hyperlipidemia (Chronic) Anxiety (Chronic) Hospital Course and Treatment Imaging Results: 05/10/18 08:00 Stress Test Echo W/Contrast [ECHO] Routine Summary of Care Provided: The patient is a 62 year old F with past medical history is enough for hypertension, dyslipidemia and diabetes mellitus type 2 who presented with chest pain. Patient was placed on a monitored bed MD was ruled out with serial cardiac enzymes patient subsequently underwent a stress echo which was negative for stress-induced ischemia discharge home instructed to follow-up with PCP Hospital course as elicited above by Chasidy Borjas Time spent on discharge 35 minutes. Code Visit OBSV E&M: 08401 Observation care discharge
[2018-05-10 12:07] VITALS: BP 148/73; PULSE 83; RESP 16; TEMP 36.8; O2SAT 96
--- NOTE | 2018-05-10 12:07 | DS.PCM_ITS ---
<Chasidy Borjas - Last Filed: 05/10/18 12:07> Discharge Date and Diagnosis - Problem List Patient Problems: Active and Suspected Problems Chest pain (Acute) Date of Admission: 05/09/18 Date of Discharge: 05/10/18 - Primary Discharge Diagnosis Active and Suspected Problems 1. Musculoskeletal chest pain - Secondary Discharge Diagnosis Chronic Problems Obesity (BMI 30-39.9) (Chronic) Hypertension (Chronic) Hypothyroidism (Chronic) Hyperlipidemia (Chronic) Anxiety (Chronic) Hospital Course and Treatment Imaging Results: Diagnostic Data Chest X-Ray 05/09/18 12:20 IMPRESSION: Normal x-ray examination of the chest. Electronically Signed: Joey Coronado MD at 12:39 EDT Tel [phone], Service support , Operations: None Procedures: - - Stress echo Summary of Care Provided: The patient is a 62 year old F admitted 05/09/2018 due to chest pain. She has a past medical history of hypertension, hyperlipidemia, type 2 diabetes mellitus, anxiety/depression, obesity. Troponin negative. Patient underwent stress echo which was normal. Ejection fraction 65%. No chest pain during exertion. Patient denies further chest pain during admission. ACS ruled out. Other chronic medical conditions as noted above are stable at this time. Patient stable for discharge home with follow-up with primary care physician in 1 week. General: Alert, Oriented x3, Cooperative, No apparent distress HEENT: Atraumatic, PERRLA, EOMI, Normocephalic Oral: Moist Mucosa Neck: Supple, No JVD, Negative Carotid Bruits Lungs: Clear to auscultation, Normal air movement Cardiovascular: Regular rate, Regular Rhythm, Normal S1, Normal S2, No murmurs Abdomen: Bowel Sounds Present, Soft, Non Tender, Non-Distended Extremities: No clubbing, No cyanosis, No edema, Capillary Refill Less than 3 Seconds Skin: No rashes, No breakdown Musculoskeletal: No Tenderness to Palpation of Joints or Extremities Lymphatic: No Cervical, Supraclavicular, or Inguinal Adenopathy Neurological: Cranial nerves II-XII grossly intact, Neuro grossly intact Psych/Mental Status: Normal Affect, Appropriate Patient seen exam prior to discharge. Physical assessment as noted above. Patient is stable for discharge home with follow-up with primary care physician in 1 week. This patient was seen by CARITO Palmer under the supervision of Dr. Miller. Discharge Diet: 1800 Calorie Control Diet, Carb Control Diet Discharge Activity: Return to Normal Activity Call your doctor if you observe: Shortness of breath, Dizziness, Swelling in the ankles, Chest pain Home Medications: Medications to take at Discharge Aspirin [Ecotrin] 81 mg PO DAILY 08/20/13 Lisinopril [Zestril] 10 mg PO DAILY 08/20/13 Trazodone HCl [Oleptro ER] 150 mg PO QHS 08/20/13 Cyclobenzaprine [Flexeril] 10 mg PO QHS PRN 09/24/17 Duloxetine Hcl [Cymbalta] 30 mg PO BID 09/24/17 Meloxicam [Mobic] 15 mg PO DAILY 09/24/17 Pravastatin [Pravachol] 40 mg PO QHS 09/24/17 Insulin Aspart [Novolog Flexpen] 15 units SC TIDCM 05/09/18 Insulin Degludec [Tresiba Flextouch U-200] 50 units SQ QHS 05/09/18 Levothyroxine [Synthroid] 100 mcg PO DAILY 05/09/18 Primary Care Physician: Teresa Flores MD [Primary Care Provider] - Please follow up with your Primary Care Physician in: 1 Week Disposition: Home Minutes spent on discharge:: 35 Patient Condition:: Stable Medical Necessity - Tobacco Use Smoking Status: Never smoker Meaningful Use Info Meaningful Use Diagnoses (Choose all that apply): None applicable <Flash Miller - Last Filed: 05/10/18 13:08> Discharge Date and Diagnosis - Primary Discharge Diagnosis Active and Suspected Problems Chest pain (Acute) - Secondary Discharge Diagnosis Chronic Problems Obesity (BMI 30-39.9) (Chronic) Hypertension (Chronic) Hypothyroidism (Chronic) Hyperlipidemia (Chronic) Anxiety (Chronic) Hospital Course and Treatment Imaging Results: 05/10/18 08:00 Stress Test Echo W/Contrast [ECHO] Routine Summary of Care Provided: The patient is a 62 year old F with past medical history is enough for hypertension, dyslipidemia and diabetes mellitus type 2 who presented with chest pain. Patient was placed on a monitored bed MA was ruled out with serial cardiac enzymes patient subsequently underwent a stress echo which was negative for stress-induced ischemia discharge home instructed to follow-up with PCP Hospital course as elicited above by Chasidy Borjas Time spent on discharge 35 minutes. Code Visit OBSV E&M: 00632 Observation care discharge
[2018-05-10 12:10] LABS: Bedside Glucose 75 mg/dL (70-110)
== END 2018-05-10 11:41 | disposition home or self-care (01) ==
LOC: ED 12:50 → PCU 14:05
PROVIDERS: Admitting Provider Student in an Organized Health Care Education/Training Program; Emergency Provider Emergency Medicine; Family Provider Internal Medicine; PCP Internal Medicine; Visit Provider Internal Medicine
DX: R07.89 Other chest pain (principal); E66.9 Obesity, unspecified; Z23 Encounter for immunization; E78.5 Hyperlipidemia, unspecified; E03.9 Hypothyroidism, unspecified; I10 Essential (primary) hypertension; F41.9 Anxiety disorder, unspecified; F32.9 Major depressive disorder, single episode, unspecified; Z79.899 Other long term (current) drug therapy; Z79.4 Long term (current) use of insulin; Z79.82 Long term (current) use of aspirin; Z68.38 Body mass index [BMI] 38.0-38.9, adult; Z71.3 Dietary counseling and surveillance; N17.9 Acute kidney failure, unspecified
CPT/HCPCS: 36415; 71045; 80048; 82962; 84484; 85025; 85610; 85730; 93005; 93017; 93350; 96361; 96372; 96374; 99218; 99285; J7030; Q9957; 90686; A4216; C8928; G0378

== ENCOUNTER 2018-05-25 19:42 | Emergency (ER) | payer MEDICARE, SELFPAY ==
[2018-05-25 19:44] VITALS: BP 149/87; PULSE 85; RESP 18; TEMP 36.2; O2SAT 97; BMI 39.6
[2018-05-25 19:56] LABS: Bedside Glucose 56 mg/dL (70-110)
[2018-05-25] MEDS: 0.9% Normal Saline 1,000 ML 150 ML IV (20:00)
[2018-05-25] MEDS: Dextrose 50%-Water 25 GM/50 ML DISP.SYRIN IV (20:01)
[2018-05-25 20:15] LABS: Absolute Lymphocyte Count 1.28 X10^3/ul (0.83-4.51); Absolute Neutrophil Count 3.7 X10^3/uL (2.0-7.7); Basophil# 0.03 X10^3/uL; Basophil% 0.6 % (0-1); Eosinophil# 0.07 X10^3/uL; Eosinophils% 1.3 % (0-5); Hematocrit 35.7 % (37-47); Hemoglobin 11.9 g/dl (12.0-15.0); Lymphocyte # 1.28 X10^3/ul (4.0); Lymphocyte % 23.7 % (19-41); Mean Corp Hgb Conc 33.3 g/gl (32-36); Mean Corpuscular Hgb 29.2 pg (27.0-32.0); Mean Corpuscular Volume 87.7 fL (81-99); Mean Platelet Vol. 9.1 fl (6.2-12.0); Monocyte# 0.36 X10^3/uL; Monocyte% 6.7 % (0-10); Neutrophil # 3.67 X10^3/uL (2.7-7.7); Neutrophil % 67.7 % (47-70); Platelet Count 155 K/mm3 (150-450); RBC Distribution Width CV 12.3 % (11.6-14.6); RBC Distribution Width SD 39.7 fl (35.1-43.9); Red Blood Count 4.07 M/mm3 (4.2-5.4); White Blood Count 5.4 K/mm3 (4.4-11.0)
[2018-05-25 20:17] LABS: POSITIVE COUNT NO; POSITIVE DIFFERENTIAL NO; POSITIVE MORPHOLOGY NO
[2018-05-25 20:30] LABS: Anion Gap 4 (5-15); BUN 14 mg/dL (7-18); BUN/Creat Ratio 14.1 RATIO (10-20); Calcium,Total 8.6 mg/dL (8.5-10.1); Chloride 107 mmol/L (98-107); Creatinine, Serum 0.99 mg/dL (0.55-1.02); EST Glomerular Filtration Rate 61 mL/min (>60); Est Glom Filt Rate - Afr Amer 73 mL/min (>60); Estimated Creatinine Clearance 43.41 ml/min; Glucose 223 mg/dL (74-106); Potassium 4.1 mmol/L (3.5-5.1); Sodium Level 141 mmol/L (136-145)
[2018-05-25 20:48] VITALS: BP 141/70; PULSE 82; RESP 14; O2SAT 98
[2018-05-25] MEDS: Ondansetron 4 MG/2 ML Vial IV (20:48)
--- NOTE | 2018-05-25 21:26 | ED.VISSUMM ---
- ER Visit Summary Date of Service: 05/25/18 Chief Complaint: [Mental status change] History of Present Illness: The patient is a 62 F [presents the emergency department complaint of mental status change that occurred this evening prior to arrival in the emergency department. Patient apparently was having dinner with a friend when she became confused and disoriented. Patient apparently left the dinner table and came back at wearing any closed and was diaphoretic. Patient was given 2 glucose tablets after the friend checked patient's blood sugar noted to be 35. EMS was called. On arrival patient still somewhat confused and disoriented slow to answer questions and a very poor historian. Patient is an insulin-dependent diabetic. Patient states that she has been having difficulty regulating her insulin is at times is too high and at times it is too low.] Patient gave self insulin prior to eating dinner tonight 15 units of Humalog which she gives herself 3 times a day. Physical Examination: [HEENT-PERRLA, EOMI. Cranial nerves II through XII grossly intact. TMs clear. Mucous membranes moist. No adenopathy. Cardiovascular-regular rate and rhythm without murmur or ectopy Lungs-clear to auscultation, chest wall stable without crepitus or subcu emphysema Abdomen-normoactive bowel sounds, soft, nontender, no rebound or rigidity, no peritoneal signs. Extremities-intact ?4, normal range of motion, normal pulses, atraumatic] Test Results: [CBC with differential obtained was unremarkable. Chemistries unremarkable. Glucose was 223. On arrival initial blood glucose was 56.] Emergency Department Course and Treatment: [Patient given an amp of D50 and was given a meal.] Patient was observed in the department for over 2 hours and repeat blood glucose in the 220s. Patient will give herself the regular dose of long-acting insulin this evening but she is advised to check her blood sugar before she does so. She will not give herself any Humalog this evening. Treatment Plan: [Follow-up with primary care physician within next 3-5 days. Patient advised that it would be better to err on the side of blood sugar running a little bit high rather than too low.] Disposition: [Discharged home in stable condition. Patient advised to check her blood sugars before giving her some short acting insulin.] Impression: [Hypoglycemia-insulin reaction] This note was generated with [employer] dictation software. It may contain incorrect words, spelling, and punctuation that were not noted in review of the chart prior to signing ED Disposition - Plan for ED Patient: Chief Complaint: Alt LOC Referrals: Teresa Flores MD [Primary Care Provider] -
[2018-05-25 21:30] LABS: Bedside Glucose 262 mg/dL (70-110)
--- NOTE | 2018-05-25 21:49 | ED.DEP ---
ED Disposition - Plan for ED Patient: Chief Complaint: Alt LOC Instructions: ED Diabetes Hypoglycemia Insulin React Referrals: Teresa Flores MD [Primary Care Provider] - 3-5 Days
[2018-05-25 21:52] VITALS: BP 173/81; PULSE 96; RESP 18
[2018-05-25 22:18] VITALS: BP 178/81; PULSE 99; RESP 14; O2SAT 96
== END 2018-05-25 22:19 | disposition home or self-care (01) ==
LOC: ED 20:05
PROVIDERS: Emergency Provider Emergency Medicine; Family Provider Internal Medicine; PCP Internal Medicine
DX: E11.649 Type 2 diabetes mellitus with hypoglycemia without coma (principal); Z79.4 Long term (current) use of insulin; I10 Essential (primary) hypertension; E78.00 Pure hypercholesterolemia, unspecified; E03.9 Hypothyroidism, unspecified; Z79.82 Long term (current) use of aspirin; Z79.899 Other long term (current) drug therapy
CPT/HCPCS: 80048; 82962; 85025; 96361; 96374; 96375; 99285; J7030; A4216; J2405

== ENCOUNTER 2019-03-07 19:39 | Emergency (ER) | payer MEDICARE, SELFPAY ==
[2019-03-07 19:40] VITALS: BP 140/72; PULSE 89; RESP 15; TEMP 36.7; BMI 36.3
--- NOTE | 2019-03-07 19:59 | ED.DCSUM_ITS ---
- ER Visit Summary Date of Service: 03/07/19 Chief Complaint: Foreign body in left ear History of Present Illness: The patient is a [address] Lynn. She reports that a 6:00 this evening the tip of her hearing aid broke off and is in her left ear. She complains of mild pain. She denies any other complaints. Physical Examination: Vitals: Stable. Afebrile. General: Well-nourished and well-developed. Head: Normocephalic atraumatic. HEENT: Small blue foreign body in the left external auditory canal. No bleeding. Neck: Supple, no lymphadenopathy. No JVD. Nontender. Cardiovascular: Regular rate and rhythm. No murmurs. Respiratory: No respiratory distress. Clear to auscultation bilaterally. Abdominal: Soft, nontender, nondistended, normal bowel sounds. No guarding, rebound, or peritoneal signs. Back: Nontender. Extremities: Nontender, no edema. Skin: Normal color, no rash. Neurologic: Alert and oriented ?3. Cranial nerves II through XII are intact. Normal strength and sensation. Psych: Normal affect. Emergency Department Course and Treatment: The patient had the foreign body removed with a curette. She tolerated this well. There is no bleeding. Treatment Plan: Patient will be discharged instructions to follow-up with her primary care physician as needed. Return to the emergency department for any worsening symptoms. Disposition: To home in improved and stable condition. Impression: 1. Foreign body left ear, removed. This note was generated with [employer] dictation software. It may contain incorrect words, spelling, and punctuation that were not noted in review of the chart prior to signing ED Disposition - Plan for ED Patient: Disposition: Home or Assisted Living Instructions: FOREIGN BODY, Ear Canal (Removed) Referrals: Teresa Flores MD [Primary Care Provider] - As Needed
[2019-03-07 20:01] VITALS: RESP 16
== END 2019-03-07 20:03 | disposition home or self-care (01) ==
LOC: ED 19:54
PROVIDERS: Emergency Provider Emergency Medicine; Family Provider Internal Medicine; PCP Internal Medicine
DX: T16.2XXA Foreign body in left ear, initial encounter (principal); E11.9 Type 2 diabetes mellitus without complications; I10 Essential (primary) hypertension; E78.00 Pure hypercholesterolemia, unspecified; Z79.82 Long term (current) use of aspirin; Z79.4 Long term (current) use of insulin; Z79.899 Other long term (current) drug therapy
CPT/HCPCS: 10120; 99282

== ENCOUNTER 2019-05-04 19:57 | Emergency (ER) | payer MEDICARE, SELFPAY ==
[2019-05-04 19:58] VITALS: BP 154/78; PULSE 105; RESP 16; TEMP 36.7; O2SAT 99; BMI 34.8
--- NOTE | 2019-05-04 20:19 | RAD_ITS ---
STUDY: X-RAY - LEFT FOOT CLINICAL: Female, 63 years old. Injury. Pain. TECHNIQUE: 3 view(s) of the foot. COMPARISON: None. FINDINGS: There is no evidence of fracture or dislocation. There are no significant degenerative changes. There are no radiodense foreign bodies. RAD/Foot min 3 Views IMPRESSION: No fracture or dislocation. Electronically Signed: Edilson Rg, at 20:37 EDT Tel , Service support ,
--- NOTE | 2019-05-04 20:46 | ED.VIS.GEN ---
History of Present Illness Chief Complaint: Lower Extremity Injury Detail of Chief Complaint: Left foot injury Informant: Patient Onset: Weeks Context: Gradual Onset Timing: Waxes and wanes Current Severity: Moderate Maximum Severity: Moderate Narrative: Patient presents with continued left foot pain, bruising, and redness after kicking a coffee table 2-1/2 weeks ago. Patient states she initially had some ecchymosis up the back of her calf as well but that seems to be improved. She noted some redness starting on her right foot recently and was concerned for infection. - Past Medical History (1) Diabetes Status: Chronic (2) Hyperlipidemia Status: Chronic (3) Hypertension Status: Chronic (4) Hypothyroidism Status: Chronic Past Medical History - Allergies and Home Meds Allergies/Adverse Reactions: Allergies No Known Allergies Allergy (Verified 05/04/19 19:59) Primary Care Physician: Teresa Flores MD [Primary Care Provider] - Doctors: Sees a meter inspector through [facility]. Prior records reviewed: Yes Past Medical History: - - Reviewed Surgical History: - - Cataracts, Cholecystectomy. Smoking Status: Never smoker - Family History Maternal Family History: Reports: Cancer, Diabetes, Heart Disease, Hypertension Paternal Family History: Reports: Cancer, Diabetes, Heart Disease, Hypertension Review of Systems General: Denies: Chills, Fever Eyes: Denies: Visual changes - bilaterally ENT: Denies: Bilateral ear pain Cardiovascular: Denies: Chest pain, Palpitations Respiratory: Denies: Dyspnea, Cough Gastrointestinal: Denies: Abdominal pain Musculoskeletal: Reports: Arthralgias, Extremity Pain Skin: Reports: Abrasions Neurological: Denies: Weakness, Parasthesia Hematologic: Denies: Easy bruising, Easy bleeding Allergy: Denies: Uticaria Physical Exam Vital Signs/Narrative: Vital Signs Temp Pulse Resp BP Pulse Ox 05/04/19 19:58 98.1 F 105 H 16 154/78 H 99 Inital Vital Signs reviewed: Yes General: Well nourished, Well developed Head: Normocephalic ENT: Moist mucous membranes Cardiovascular: Regular rate, Regular rhythm Respiratory: No distress, CTA bilaterally Abdomen: Soft, Nontender Extremities: - - Mild edema to the left foot with ecchymosis to the base of the toes. There are a few superficial abrasions over the top of the foot. There is an area of erythema and warmth along the lateral portion of the left foot. No ulcerations noted. Strong pulses are noted. Neurological: Alert, Oriented x3 Psychological: Normal affect Diagnostic/Tx/Re-eval Impressions Foot X-Ray 05/04/19 20:19 IMPRESSION: No fracture or dislocation. Electronically Signed: Edilson Rg, at 20:37 EDT Tel , Service support , 05/04/19 20:19 Foot min 3 Views [RAD] Stat - Medical Decision Making Test results are discussed with the patient. At this time there is no evidence of fracture. I am concerned about the erythema and warmth. She will be given Bactrim and Keflex. Left foot is wrapped in Jaylon wrap. She is already on Mobic at baseline for pain. ED Disposition - Plan for ED Patient: Disposition: Home or Assisted Living Diagnosis: Foot contusion, Cellulitis Instructions: Cellulitis, CONTUSION, Foot Prescriptions: Smz/Tmp Ds [Bactrim Ds] 1 tab PO BID #14 tab Prescription Printed Cephalexin [Keflex] 500 mg PO Q6 #40 cap Prescription Printed Referrals: Teresa Flores MD [Primary Care Provider] - Additional Instructions: Follow-up with your meter inspector as discussed.
[2019-05-04] MEDS: Smz/Tmp Ds Tablet 1 TABLET PO (20:59)
[2019-05-04] MEDS: Cephalexin 250 MG Capsule 500 MG PO (20:59)
[2019-05-04 21:01] VITALS: PULSE 96; RESP 16; O2SAT 96
== END 2019-05-04 21:02 | disposition home or self-care (01) ==
PROVIDERS: Emergency Provider Emergency Medicine; Family Provider Internal Medicine; PCP Internal Medicine
DX: S90.32XA Contusion of left foot, initial encounter (principal); S90.812A Abrasion, left foot, initial encounter; L03.116 Cellulitis of left lower limb; W22.8XXA Striking against or struck by other objects, initial encounter; Y93.9 Activity, unspecified; Y92.9 Unspecified place or not applicable; E11.9 Type 2 diabetes mellitus without complications; E78.5 Hyperlipidemia, unspecified; E03.9 Hypothyroidism, unspecified; I10 Essential (primary) hypertension; Z79.82 Long term (current) use of aspirin; Z79.4 Long term (current) use of insulin; Z79.899 Other long term (current) drug therapy
CPT/HCPCS: 73630; 99283